=== PATIENT | female | born 1970 | race Caucasian/White ===

== ENCOUNTER 2017-07-06 11:23 | Emergency (ER) | payer OTHER ==
[~2017-07-06] VITALS: Ht 162.6 cm; Wt 82.2 kg
[2017-07-06] MEDS ORDERED: ibuprofen tablet 400 MG TABLET PO ONE (13:30)
[2017-07-06] MEDS ORDERED: IBUP-1986 PO (13:33)
[2017-07-06 13:40] VITALS: BP 127/79
== END 2017-07-06 13:42 | disposition home or self-care (01) ==
LOC: ER 11:25
DX: M54.2 Cervicalgia (principal); Z88.0 Allergy status to penicillin; V49.88XA Car occupant (driver) (passenger) injured in other specified transport accidents, initial encounter; Y93.89 Activity, other specified; Y92.413 State road as the place of occurrence of the external cause; Y99.9 Unspecified external cause status
CPT/HCPCS: 99282